=== PATIENT | male | born 1960 | race Caucasian/White ===

== ENCOUNTER 2022-03-22 15:00 | Outpatient (RCR) | payer BC, SELFPAY ==
--- NOTE | 2022-03-07 14:08 | HP.PTEVAL ---
Patient's Visit Information SANIYA ANDERSON is a 61 year old M referred to Physical Therapy by MISTI CAGE with a diagnosis of DDD LUMBAR. Date of Evaluation: 03/07/22 Physical Therapist: Chon Ann, PT, Cert MDT, OCS - Visit Plan Frequency: 2x /Week Duration: 6 Weeks Plan: PT INTERVETIONS HARRIS EX'S ,DLS ,POSTURAL EX'S ,LE FLEXABLITY AND POSTURE TRAINING - Subjective This 61 y/o male presents to physical therapy with back pain. Patient has had back pain since last year in March traveling in [place] in bent position in plan . 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 Seen chiropractor recommended massage then see [facility] orthopedic back specialist . Patient slowly getting better . Patient had x-rays DDD . Patient has pain symmetrical lumbar pain. Aggravating bending ,lifting ,vacuuming walking and standing . Alleviating better with rest ,massage ,walking correct posture . Denies paresthesia/tingling . Bowel/bladder -. No abnormal night pain. Patient able to sleep . Patient goals to have no pain. Patient symptoms affects QOL and function. Patient has h/o cervical fusion 2016. SOCAIL: . VOCATION: [employer] - Pain Bilateral Back Pain Intensity (Out of 10): 4 Pain Intensity Range: 10 - Objective POSTURE: mild forward posture. GAIT: reciprocal pattern. PALAPTION: unremarkable. NEURO: intact denies paresthesia/tingling ,reflexes L3-4,L4-5,L5-S1 2/3. FLEXABLITY: hamstrings min tight. LUMBAR ROM: flexion min loss ,extension mod loss, side glides min loss. MMT: quads/hams 4/5 ,hip flexion 4/5 ,ankle 5/5 - Special Tests L/S Slump test left side: Negative L/S Slump test right side: Negative L/S Left Straight Leg Raise: Negative L/S Right Straight Leg Raise: Negative Lumbar Standing: Flexion - Mechanical Response: No effect Lumbar Standing: Flexion - Symptoms During Testing: No effect Lumbar Standing: Flexion - Symptoms After Testing: No effect Lumbar Standing: Extension - Mechanical Response: No effect Lumbar Standing: Extension - Symptoms During Testing: Increases Lumbar Standing: Extension - Symptoms After Testing: No worse Lumbar Standing: Right Side Glides - Mechanical Response: No effect Lumbar Standing: Right Side Dolliver - Symptoms During Testing: No effect Lumbar Standing: Right Side Dolliver - Symptoms After Testing: No effect Lumbar Standing: Left Side Dolliver - Mechanical Response: No effect Lumbar Standing: Left Side Dolliver - Symptoms During Testing: No effect Lumbar Standing: Left Side Dolliver - Symptoms After Testing: No effect Lumbar Lying: Flexion - Mechanical Response: No effect Lumbar Lying: Flexion - Symptoms During Testing: No effect Lumbar Lying: Flexion - Symptoms After Testing: No effect Lumbar Lying: Extension - Mechanical Response: Decreases motion Lumbar Lying: Extension - Symptoms During Testing: Decreases Lumbar Lying: Extension - Symptoms After Testing: Better - Balance/Special Test Scores Oswestry Low Back Score: 19 - Goals Goal 1:: Patient to be I with HEP for lumbar spine Goal Time Frame: 4-6 Weeks Goal 2:: Patient improve posture/body mechanics for ADL and job Goal Time Frame: 4-6 Weeks Goal 3:: Patient to demonstrate 75 % improvement with improved function and less pain Goal Time Frame: 4-6 Weeks Goal 4:: Patient improve lumbar extension to WFL and function of recovery to sit with job demands Goal Time Frame: 4-6 Weeks Goal 5:: Patient improve back oswestry score by 5 points or > to inmpove QOL Goal Time Frame: 4-6 Weeks - Rehabilitation Potential Physical Therapy Diagnosis: This patient has lumbar pain with possible derangement with pain worse with flexion and position and affects motion testing thus will benefit from skilled PT Rehabilitation Potential: Good - Anticipated Interventions Patient/Client Instruction: Educate patient on: Condition, Plan of Care For the Purpose of:: To decrease pain, To increase ROM, To improve muscle performance and motor function, To improve ability to perform ADL's, To improve ability of physical actions for home/community/work/leisure, To improve health of tissue, To decrease soft tissue restriction, To increase flexibility/ROM, To prevent re-injury, To improve tolerance to ADL's Therapeutic Exercise to Include: Strength training, Body mechanics, Postural training, Flexibilty training, Dynamic Lumbar Stabilization, Harris Exercises For the Purpose of:: To decrease pain, To increase ROM, To improve muscle performance and motor function, To improve ability to perform ADL's, To increase tolerance to activity/condition/position, To improve ability of physical actions for home/community/work/leisure, To improve health of tissue, To decrease soft tissue restriction, To increase flexibility/ROM, To prevent re-injury TENS: Yes IF ES: Yes Cryotherapy (ice pack, ice massage): Yes Thermo therapy (hot pack): Yes For the Purpose of:: To decrease pain, To increase ROM, To improve nutrient delivery to tissue, To increase oxygenation perfusion, To improve gait and locomotor functions, To improve health of tissue, To decrease soft tissue restriction Thank you for the opportunity to evaluate your patient. For Medicare and Medicare HMO plans, please review the plan of care and approve it. It will need to be FAXED BACK to us at [phone] for Medicare purposes. For Medicare only, by signing this I certify the plan of care. Please let me know if there are questions or concerns regarding this plan of care. Physician Signature: Date:
--- NOTE | 2022-08-02 10:32 | HP.PT.NRP ---
SANIYA ANDERSON was seen in my office for initial evaluation on 03/07/22. The following Plan of Care was established for this patient: Initial Frequency: 2x /Week Initial Duration: 6 Weeks Patient/Client Instruction: Educate patient on: Condition, Plan of Care For the Purpose of:: To decrease pain, To increase ROM, To improve muscle performance and motor function, To improve ability to perform ADL's, To improve ability of physical actions for home/community/work/leisure, To improve health of tissue, To decrease soft tissue restriction, To increase flexibility/ROM, To prevent re-injury, To improve tolerance to ADL's Therapeutic Exercise to Include: Strength training, Body mechanics, Postural training, Flexibilty training, Dynamic Lumbar Stabilization, Bradford Exercises For the Purpose of:: To decrease pain, To increase ROM, To improve muscle performance and motor function, To improve ability to perform ADL's, To increase tolerance to activity/condition/position, To improve ability of physical actions for home/community/work/leisure, To improve health of tissue, To decrease soft tissue restriction, To increase flexibility/ROM, To prevent re-injury TENS: Yes IF ES: Yes Cryotherapy (ice pack, ice massage): Yes Thermo therapy (hot pack): Yes For the Purpose of:: To decrease pain, To increase ROM, To improve nutrient delivery to tissue, To increase oxygenation perfusion, To improve gait and locomotor functions, To improve health of tissue, To decrease soft tissue restriction This patient was last seen in our office . Pertinent comments regarding their Physical therapy will appear below: This patient seen for PT for LBP doing well thus d/c At this point I will be discontinuing this patient from physical therapy. I would be happy to see this patient again in the future if found appropriate by the physician. Thank you! Chon Ann, PT, Cert MDT, OCS Balance/Gait/Functional tests - Balance/Special Test Scores Oswestry Low Back Score: 1
== END 2022-03-22 19:00 | disposition home or self-care (01) ==
LOC: PT 15:00
PROVIDERS: PCP Family Medicine
DX: M51.36 Other intervertebral disc degeneration, lumbar region (principal)
CPT/HCPCS: 97110; 97161

== ENCOUNTER → 2023-01-16 | Outpatient (CLI) | payer BC, SELFPAY ==
[2023-01-16 08:09] LABS: Hematocrit 50.3 % (40-54); Hemoglobin 16.4 g/dL (13.0-16.5); Mean Corp Hgb Conc 32.6 g/dL (32-36); Mean Corpuscular Hgb 30.2 pg (27.0-32.0); Mean Corpuscular Volume 92.6 fL (80-94); Platelet Count 279 K/mm3 (150-450); RBC Distribution Width CV 13.5 % (11.6-14.6); RBC Distribution Width SD 46.2 fl (35.1-43.9); Red Blood Count 5.43 M/mm3 (4.6-6.2); White Blood Count 7.9 K/mm3 (4.4-11.0)
[2023-01-16 08:36] LABS: Anion Gap 3 (5-15); BUN 18 mg/dL (7-18); BUN/Creat Ratio 17.3 RATIO (10-20); Calcium,Total 8.9 mg/dL (8.5-10.1); Chloride 108 mmol/L (98-107); Creatinine, Serum 1.04 mg/dL (0.70-1.30); EST Glomerular Filtration Rate 77 mL/min (>60); Est Glom Filt Rate - Afr Amer 94 mL/min (>60); Glucose 130 mg/dL (74-106); Potassium 3.9 mmol/L (3.5-5.1); Sodium Level 141 mmol/L (136-145)
== END | disposition home or self-care (01) ==
LOC: PSN 14:06
PROVIDERS: PCP Family Medicine; Referring Provider Otolaryngology; Visit Provider Otolaryngology
DX: Z01.812 Encounter for preprocedural laboratory examination (principal); Z01.810 Encounter for preprocedural cardiovascular examination
CPT/HCPCS: 36415; 80048; 85027; 93005

== ENCOUNTER → 2023-02-05 | Outpatient (CLI) | payer BC, SELFPAY ==
--- NOTE | 2023-02-05 | NASAL_PTH ---
PATIENT: SANIYA ANDERSON LOC: [facility] U#:[id number] AGE/SX: 62/M ROOM: RE02/05/[address]: Dr. Bruce Webber MD : 1960 BED: DIS: 02/05/2023 SPEC #: [id number] RECD: 02/06/23 08:18 STATUS: HERMINIO LANA #: [id number] VINAY: 02/05/23 00:[address]: Bruce Webber DEPT: SURGICAL PATHOLOGY RECD BY: Maryann Sahu ENTERED: 02/06/23 08:19 SP TYPE: NASAL SPEC OTHR DR: Dr. Maycol Murguia MD [facility] Tissues: Nasal septum, NOS Procedures: Decalcification bone/plaque Surgery Specimen Level III HEADER OPERATION: Septoplasty PRE-OP DIAGNOSIS: Nasal congestion, hypertrophy of nasal turbinates, deviated nasal septum TISSUE SUBMITTED: Nasal septum MICROSCOPIC DIAGNOSIS Nasal septum, septoplasty: Fragments of hyaline cartilage and bone with focal reparative and reactive change (clinically deviated septum). AM:josie 02/11/2023 MICROSCOPIC DESCRIPTION Slides are reviewed. GROSS DESCRIPTION Received is one container labeled with the patient's name and not further designated. The specimen consists of multiple irregular fragments of light to dark echols bone and cartilage that in aggregate measure 2.5 x 2.0 x 0.2 cm. The specimen is totally submitted in one cassette after decalcification. / AM:josie 02/06/2023 TC:5 CPT: 80959, 09626
== END | disposition home or self-care (01) ==
LOC: LABSPEC 15:40
PROVIDERS: PCP Family Medicine; Visit Provider Otolaryngology
DX: R09.81 Nasal congestion (principal); J34.3 Hypertrophy of nasal turbinates; J34.2 Deviated nasal septum
CPT/HCPCS: 88304; 88311

== ENCOUNTER 2023-03-06 15:00 | Outpatient (RCR) | payer BC, SELFPAY ==
--- NOTE | 2022-11-23 07:50 | HP.PTEVAL_ITS ---
Patient's Visit Information Visit Information Visit Information: SANIYA ANDERSON is a 62 year old M referred to Physical Therapy by ARIEL AREVALO with a diagnosis of Lumbar DDD. Date of Evaluation: 11/13/22 Physical Therapist: Junior Street DPT Visit Plan Frequency: 2x /Week Duration: 4 Weeks Plan: start with neutral spine core stability, hip flexor/HS stretching. Progress as tolerated with REIL. Pt. was hesitant with REIL due to trialing in the past with some adverse reaction. Subjective Subjective: Pt. is here today for his initial evaluation with diagnosis of low back pain with DDD. Pt. reports having PT previously, but felt like it was making his back more sore. Pt. has been doing massage therapy with good results. Pt. is hopeful to increase his strength in order to get back to all previous life style activities without increase in symptoms. 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 Pt. denies N/T down either LE today. Pt. reports pain in lumbar spine. Unsure of mech of injury. Pt. is hopeful to reduce symptoms in order to start getting back into shap Pain Lumbar spine: Pain Intensity (Out of 10): 3 Pain Intensity Range: 0 and 5 Objective Objective: POSTURE: Pt. has general flexed posture. Pt. has rounded shoulders. Pt. has slight sway back posture. Normal wt. shift between BLEs. No lateral shift noted. PALPATION: pt. has tenderness along B lumbar erector spinae. Pt. has hypomobility of lumbar spine throughout with spring testing. No pain with palpation of BLes. NEURO: Normal throughout. Pt. has normal DTR of BLEs. Pt. is able to rise on heels and toes without issues. ROM: LUMBAE SPINE: Flexion min/mod loss increase NW, exte mod loss mild increase nW, SB min loss bilat increase NW, rotation min loss bilat increase NW. Pt. has tight B hip flexors and tight B HS. MMT: PT. has 5/5 strength of distal BLEs. Pt. has 4+/5 throughout B hips, poor+ core strength noted. GAIT: PT. has normal gait pattern. Slight loss in B arm swing, fairly rigid movements with gait. STAIRS: normal. Special Tests L/S Slump test left side: Negative L/S Slump test right side: Negative L/S Left Straight Leg Raise: Negative L/S Right Straight Leg Raise: Negative Balance/Special Test Scores Oswestry Low Back Score: 20 Goals Goal 1:: LTG: pt. to be I with HEP. Goal Time Frame: 4-6 Weeks Goal 2:: STG: pt. to have increased lumbar ROM by 50% in all directions. Goal Time Frame: 2-4 Weeks Goal 3:: LTG: pt. to have increased core and B hip strength by 1/2 grade throughout. Goal Time Frame: 4-6 Weeks Goal 4:: LTG: Pt. to complete all work duties including standing/sitting for longer periods Goal Time Frame: 4-6 Weeks Rehabilitation Potential Physical Therapy Diagnosis: Pt. has signs and symptoms consistent with B lumbar DDD. Pt. has marked loss increase lumbar ROM and marked core weakness. He has guarded posture with all activities as well. he would benefit from PT to address the above limitations progressing back to all recreational and work activities without limitations. Rehabilitation Potential: Good Anticipated Interventions Patient/Client Instruction: Educate patient on: Condition, Plan of Care, Risk Factors and Benefits of Fitness Program For the Purpose of:: To improve decision making, To facilitate caregiver knowledge, To improve self management, To prevent re-injury, To improve ability to perform tasks related to life management and To improve tolerance to ADL's Therapeutic Exercise to Include: Strength training, Power training, Body mechanics, Flexibilty training, Passive ROM, Dynamic Lumbar Stabilization and Bradford Exercises For the Purpose of:: To decrease pain, To increase ROM, To improve nutrient delivery to tissue, To increase oxygenation perfusion, To improve muscle performance and motor function, To improve ability to perform ADL's, To increase tolerance to activity/condition/position, To improve performance and independence with ADL's and To decrease level of supervision to perform tasks Manual Therapy Techniques to Include: Mobilization For the Purpose of:: To decrease pain, To increase ROM, To improve nutrient delivery to tissue, To increase oxygenation perfusion and To improve muscle performance and motor function Text: Thank you for the opportunity to evaluate your patient. For Medicare and Medicare HMO plans, please review the plan of care and approve it. It will need to be FAXED BACK to us at [phone] for Medicare purposes. For Medicare only, by signing this I certify the plan of care. Please let me know if there are questions or concerns regarding this plan of care. Physician Signature: Date:
== END 2023-03-06 19:00 | disposition home or self-care (01) ==
LOC: PT 15:00
PROVIDERS: PCP Family Medicine
DX: M51.36 Other intervertebral disc degeneration, lumbar region (principal)
CPT/HCPCS: 97110; 97161